=== PATIENT | female | born 1970 | race African-American/Black ===

== ENCOUNTER 2016-09-24 07:38 | Emergency (ER) | payer MEDICAID ==
[~2016-09-24] VITALS: Ht 160 cm; Wt 65.0 kg
[~2016-09-24 07:38] MED LIST: ALPR.25 PO; NAPR250T57 PO
[2016-09-24 07:42] VITALS: BP 146/86; PULSE 93; RESP 20; TEMP 97.5; O2SAT 98
[2016-09-24] MEDS ORDERED: PANT20 PO (07:54)
[2016-09-24] MEDS ORDERED: NAPROXEN 500 MG TAB PO ONE (08:15)
[2016-09-24] MEDS ORDERED: NAPR500 PO (08:16)
[2016-09-24] MEDS ORDERED: DEXT1TAB18 PO (08:16)
--- NOTE | 2016-09-24 08:16 | PD ---
HPI Chief Complaint: Chest Pain Time Seen by Provider: 08:07 Travel History International Travel<30 days: No Contact w/Intl Traveler<30days: No Traveled to known affect area: No History of Present Illness HPI 46-year-old woman who presents emergency department complaining that she can't stop coughing and her chest is hurting. Symptoms started yesterday. She felt cold at times but no definite fevers. Cough is occasionally productive of some green phlegm. Some shortness of breath, some vomiting last night. She also she 's been urinating more than normal. She smokes marijuana cigars daily. She denies any history of lung disease, COPD, asthma, or chronic bronchitis. No other complaints. History Past Medical History Narrative Medical Anxiety/depression GERD : 3 Para: 3 Social History Alcohol Use: No Tobacco Use: Yes (CIGARS X 3/DAY) Allergies-Medications (Allergen,Severity, Reaction): Coded Allergies: Dilaudid (Verified Allergy, Mild, Nausea/Vomiting, 09/24/16) Percocet (Verified Allergy, Mild, SYNCOPE, 09/24/16) Darvocet-N 100 (Verified Allergy, Unknown, 09/24/16) Reported Meds & Prescriptions Reported Meds & Active Scripts Active Reported Protonix (Pantoprazole Sodium) 20 Mg Tab 20 Mg PO DAILY Review of Systems Except as stated in HPI: all other systems reviewed are Neg Physical Exam Narrative GENERAL: Well-appearing 46-year-old woman, no acute distress. SKIN: Warm and dry. HEAD: Atraumatic. Normocephalic. NECK: Trachea midline. No JVD. CARDIOVASCULAR: Regular rate and rhythm. No murmur appreciated. RESPIRATORY: No accessory muscle use. Clear to auscultation. Breath sounds equal bilaterally. GASTROINTESTINAL: Abdomen soft, non-tender, nondistended. Hepatic and splenic margins not palpable. MUSCULOSKELETAL: No obvious deformities. No edema. PSYCHIATRIC: Appropriate mood and affect; insight and judgment normal. Data Data Last Documented VS Vital Signs Date Time Temp Pulse Resp B/P Pulse Ox O2 Delivery O2 Flow Rate FiO2 09/24/16 07:50 86 16 99 Room Air 09/24/16 07:42 97.5 146/86 Orders Electrocardiogram (09/24/16 ) MDM Medical Decision Making Medical Screen Exam Complete: Yes Emergency Medical Condition: Yes Differential Diagnosis Bronchitis, URI, pneumonia, pneumothorax, other Narrative Course Medical decision making 46-year-old with bronchitis symptoms. She looks well. Normal pulmonary exam. No evidence of pneumonia or pneumothorax. Recommend supportive treatment. Diagnosis Primary Impression: Acute bronchitis Qualified Code: J20.9 - Acute bronchitis, unspecified organism Patient Instructions: General Instructions Additional Instructions: Take Robitussin-DM as prescribed. Take naproxen as needed for chest pain and body aches. Follow-up with her primary doctor in the next 2-4 days. Return emergent department for any worsening trouble breathing, or any other new or worsening symptoms. Med/Other Pt SpecificInfo: Prescription(s) given Scripts Naproxen (Naprosyn)500 Mg [id number] Mg PO BID PRN (PAIN SCALE 1 TO 10) #20 TAB Prov:Prashant Ocasio MD 09/24/16 Dextromethorphan-Guaifenesin ER 12 HR (Mucinex DM Maximum Strength)60-1,200 Mg Tab1 Tab PO BID PRN (CHEST CONGESTION AND/OR COUGH) #14 TAB Prov:Prashant Ocasio MD 09/24/16 Disposition: 01 DISCHARGE HOME Condition: Stable Prashant Ocasio MD Sep 24, 2016 08:16
--- NOTE | 2016-09-24 18:16 | EKG ---
Date Performed: 09/24/2016 Time Performed: 07:52:51 PTAGE: 46 years EKG: Sinus rhythm Since previous tracing, no significant change noted NORMAL ECG PREVIOUS TRACING : 06/20/2015 09.02 DOCTOR: Elva Ricci Interpretating Date/Time 09/24/2016 18:15:32
== END 2016-09-24 08:50 | disposition home or self-care (01) ==
LOC: NEPE 07:38
DX: J20.9 Acute bronchitis, unspecified (principal); R09.3 Abnormal sputum; R06.02 Shortness of breath; R11.10 Vomiting, unspecified; K21.9 Gastro-esophageal reflux disease without esophagitis; Z72.0 Tobacco use; Z86.59 Personal history of other mental and behavioral disorders
CPT/HCPCS: 93005

== ENCOUNTER 2018-03-09 17:20 | Emergency (ER) | payer MEDICAID ==
[~2018-03-09] VITALS: Ht 160 cm; Wt 68.0 kg
[~2018-03-09 17:20] MED LIST changes: -ALPR.25 PO; +DEXT1TAB18 PO; -NAPR250T57 PO; +NAPR500 PO; +PANT20 PO
[2018-03-09 17:24] VITALS: BP 140/91; PULSE 133; RESP 22; TEMP 102.5; O2SAT 98
[2018-03-09] MEDS ORDERED: SODIUM CHLOR 0.9% 1000 ML INJ 1,000 ML IV ONE (17:43)
[2018-03-09 17:45] VITALS: RESP 17; O2SAT 100
[2018-03-09] MEDS ORDERED: IBUPROFEN 600 MG TAB PO ONE (17:45)
[2018-03-09] MEDS ORDERED: METOCLOPRAMIDE HCL 10 MG/2 ML VIAL IV PUSH ONE (17:45)
[2018-03-09] MEDS ORDERED: GABA300C5 PO (17:48)
--- NOTE | 2018-03-09 17:50 | PD ---
HPI Chief Complaint: Fever Time Seen by Provider: 17:43 Travel History International Travel<30 days: No Contact w/Intl Traveler<30days: No Traveled to known affect area: No History of Present Illness HPI 47-year-old female patient with history of smoking, chronic bronchitis, presents to the ER today because she is had several days history of fevers, coughing, body aches, nausea, headaches, and frequent urination. She states she does not feel well, does not know of any sick contacts. She denies other issues. Modifying Factors: None Associated Signs & Symptoms: Fevers, coughing, body aches, nausea, headaches, frequent urination Risk Factors: None PFSH Past Medical History Arthritis: No Blood Disorders: No Anxiety: Yes Depression: Yes Cancer: No Cardiovascular Problems: No Diminished Hearing: No Endocrine: No Gastrointestinal Disorders: Yes (GERD) Genitourinary: No Immune Disorder: No Musculoskeletal: No Neurologic: No Psychiatric: No Reproductive: No Respiratory: Yes (CHRONIC BRONCHITIS) Immunizations Current: Yes : 3 Para: 3 Tubal Ligation: Yes (1991) Past Surgical History Abdominal Surgery: Yes Appendectomy: Yes Ear Surgery: No Endocrine Surgery: No Eye Surgery: No Gynecologic Surgery: Yes Hysterectomy: Yes (2002) Oral Surgery: No Pacemaker: No Other Surgery: Yes (APPE,GYNE,ABD) Social History Alcohol Use: No Tobacco Use: Yes (CIGARS X 3/DAY) Substance Use: Yes (marijuana) Allergies-Medications (Allergen,Severity, Reaction): Coded Allergies: oxycodone (Verified Allergy, Severe, SYNCOPE, 03/09/18) acetaminophen (Verified Allergy, Mild, nausea, 03/09/18) propoxyphene (Verified Allergy, Unknown, rash, 03/09/18) hydromorphone (Verified Adverse Reaction, Mild, Nausea/Vomiting, 03/09/18) Reported Meds & Prescriptions Reported Meds & Active Scripts Active Cipro (Ciprofloxacin HCl) 500 Mg Tab 500 Mg PO BID 7 Days Reported Gabapentin 300 Mg Cap 300 Mg PO HS Review of Systems Except as stated in HPI: all other systems reviewed are Neg Physical Exam Narrative GENERAL: Well-developed middle-age -[place] female patient currently in mild distress. Awake and oriented 3. SKIN: Focused skin assessment warm/dry. HEAD: Atraumatic. Normocephalic. EYES: Pupils equal and round. No scleral icterus. No injection or drainage. ENT: No nasal bleeding or discharge. Mucous membranes pink and moist. NECK: Trachea midline. No JVD. CARDIOVASCULAR: Regular rate and rhythm. No murmur appreciated. RESPIRATORY: No accessory muscle use. Clear to auscultation. Breath sounds equal bilaterally. GASTROINTESTINAL: Abdomen soft, mild suprapubic tenderness without guarding or rebound, nondistended. Hepatic and splenic margins not palpable. MUSCULOSKELETAL: No obvious deformities. No clubbing. No cyanosis. No edema. NEUROLOGICAL: Awake and alert. No obvious cranial nerve deficits. Motor grossly within normal limits. Normal speech. PSYCHIATRIC: Appropriate mood and affect; insight and judgment normal. Data Data Last Documented VS Vital Signs Date Time Temp Pulse Resp B/P (MAP) Pulse Ox O2 Delivery O2 Flow Rate FiO2 03/09/18 19:24 99.5 109 18 121/80 (94) 100 Room Air Orders Orders Sepsis Workup Initiated (03/09/18 ) Complete Blood Count With Diff (03/09/18 17:43) Comprehensive Metabolic Panel (03/09/18 17:43) Lactic Acid Sepsis Protocol (03/09/18 17:43) Urinalysis - C+S If Indicated (03/09/18 17:43) Blood Culture (03/09/18 17:43) Chest, Single Ap (03/09/18 17:43) Blood Glucose (03/09/18 17:43) Ecg Monitoring (03/09/18 17:43) Iv Access Insert/Monitor (03/09/18 17:43) Oximetry (03/09/18 17:43) Oxygen Administration (03/09/18 17:43) Sodium Chlor 0.9% 1000 Ml Inj (Ns 1000 M (03/09/18 17:43) Ibuprofen (Motrin) (03/09/18 17:45) Metoclopramide Inj (Reglan Inj) (03/09/18 17:45) Influenzae A/B Antigen (03/09/18 18:56) Acetaminophen (Tylenol) (03/09/18 19:30) Labs Laboratory Tests Test 03/09/18 18:05 White Blood Count 16.8 TH/MM3 Red Blood Count 4.49 MIL/MM3 Hemoglobin 13.8 GM/DL Hematocrit 41.6 % Mean Corpuscular Volume 92.7 FL Mean Corpuscular Hemoglobin 30.6 PG Mean Corpuscular Hemoglobin Concent 33.1 % Red Cell Distribution Width 12.9 % Platelet Count 321 TH/MM3 Mean Platelet Volume 8.2 FL Neutrophils (%) (Auto) 85.8 % Lymphocytes (%) (Auto) 7.2 % Monocytes (%) (Auto) 6.6 % Eosinophils (%) (Auto) 0.1 % Basophils (%) (Auto) 0.3 % Neutrophils # (Auto) 14.4 TH/MM3 Lymphocytes # (Auto) 1.2 TH/MM3 Monocytes # (Auto) 1.1 TH/MM3 Eosinophils # (Auto) 0.0 TH/MM3 Basophils # (Auto) 0.0 TH/MM3 CBC Comment DIFF FINAL Differential Comment Urine Color YELLOW Urine Turbidity HAZY Urine pH 6.0 Urine Specific [place] 1.016 Urine Protein NEG mg/dL Urine Glucose (UA) NEG mg/dL Urine Ketones NEG mg/dL Urine Occult Blood SMALL Urine Nitrite NEG Urine Bilirubin NEG Urine Urobilinogen LESS THAN 2 mg/dL Urine Leukocyte Esterase NEG Urine RBC 1 /hpf Urine WBC 1 /hpf Urine Squamous Epithelial Cells 8 /hpf Urine Mucus FEW /lpf Microscopic Urinalysis Comment CATH-CULT NOT IND Blood Urea Nitrogen 6 MG/DL Creatinine 0.75 MG/DL Random Glucose 97 MG/DL Total Protein 8.3 GM/DL Albumin 4.0 GM/DL Calcium Level 9.4 MG/DL Alkaline Phosphatase 97 U/L Aspartate Amino Transf (AST/SGOT) 21 U/L Alanine Aminotransferase (ALT/SGPT) 36 U/L Total Bilirubin 0.8 MG/DL Sodium Level 136 MEQ/L Potassium Level 3.9 MEQ/L Chloride Level 100 MEQ/L Carbon Dioxide Level 26.4 MEQ/L Anion Gap 10 MEQ/L Estimat Glomerular Filtration Rate 100 ML/MIN Lactic Acid Level 1.0 mmol/L [facility] Medical Decision Making Medical Screen Exam Complete: Yes Emergency Medical Condition: Yes Medical Record Reviewed: Yes Interpretation(s) Laboratory Tests Test 03/09/18 18:05 White Blood Count 16.8 TH/MM3 (4.0-11.0) Neutrophils (%) (Auto) 85.8 % (16.0-70.0) Lymphocytes (%) (Auto) 7.2 % (9.0-44.0) Neutrophils # (Auto) 14.4 TH/MM3 (1.8-7.7) Monocytes # (Auto) 1.1 TH/MM3 (0-0.9) Urine Turbidity HAZY (CLEAR) Urine Occult Blood SMALL (NEG) Urine Mucus FEW /lpf (OCC) Blood Urea Nitrogen 6 MG/DL (7-18) Total Protein 8.3 GM/DL (6.4-8.2) Last 24 hours Impressions Chest X-Ray 03/09/18 4283 Signed Impressions: CONCLUSION: Lungs are clear. Differential Diagnosis Viral syndrome versus sepsis versus UTI versus pneumonia versus bronchitis Narrative Course Patient has no meningeal signs. UA did not show overt UTI. Abdomen is fairly benign and I am not suspecting an acute intra-abdominal process. She has no history of HIV, denies IV drug use. Lactate is completely normal. She is febrile and initially was given ibuprofen, supposedly is allergic to Tylenol but patient denies Tylenol allergies and was given Tylenol in the ER. Influenza testing was also done. She complains of ongoing problems with frequent urination, and at this point, considering her symptoms, my plan would be to empirically treat her for it. She is supposed to follow-up with primary care doctor in 2 days. I have talked to the patient regarding findings, and she is comfortable with following up with primary care doctor. Return for any worsening in symptoms. The plan has been discussed with her and she states understanding. Diagnosis Primary Impression: Fever Med/Other Pt SpecificInfo: Prescription(s) given Scripts Ciprofloxacin (Cipro) 500 Mg Tab 500 MG PO BID for Infection for 7 Days, #14 TAB 0 Refills Prov: Eamon Thomas MD 03/09/18 Disposition: 01 DISCHARGE HOME Condition: Stable Eamon Thomas MD Mar 09, 2018 17:50
--- NOTE | 2018-03-09 17:58 | RADRPT ---
EXAM DATE: 03/09/2018 5:56 PM EDT AGE/SEX: 47 years / Female INDICATIONS: Shortness of breath, headache and chest pain since . CLINICAL DATA: This is the patient's initial encounter. Patient reports that signs and symptoms have been present for 3 days and indicates a pain score of 5/10. MEDICAL/SURGICAL HISTORY: Hypertension. None. COMPARISON: [facility] [place] [place], [place]. . FINDINGS: A single AP view of the chest demonstrates the lungs to be symmetrically aerated without evidence of mass, infiltrate or effusion. The cardiomediastinal contours are unremarkable. Osseous structures a re intact. CONCLUSION: Lungs are clear. Electronically signed by: Júnior Emmanuel MD 03/09/2018 5:57 PM EDT
[2018-03-09 18:13] VITALS: BP 124/86; PULSE 118; RESP 17; TEMP 102.7; O2SAT 100
[2018-03-09 18:25] LABS: AUTOMATED NEUTROPHIL # 14.4 TH/MM3 (1.8-7.7); BASOPHIL % 0.3 % (0.0-2.0); EOSINOPHIL % 0.1 % (0.0-4.0); HEMATOCRIT 41.6 % (35.0-46.0); HEMOGLOBIN 13.8 GM/DL (11.6-15.3); LYMPH % 7.2 % (9.0-44.0); LYMPHOCYTE # 1.2 TH/MM3 (1.0-4.8); MEAN CELL VOLUME 92.7 FL (80.0-100.0); MEAN CORPUSCULAR HEMOGLOBIN 30.6 PG (27.0-34.0); MEAN CORPUSCULAR HGB CONC 33.1 % (32.0-36.0); MEAN PLATELET VOLUME 8.2 FL (7.0-11.0); MONO % 6.6 % (0.0-8.0); MONOCYTE # 1.1 TH/MM3 (0-0.9); NEUT % 85.8 % (16.0-70.0); PLATELET COUNT 321 TH/MM3 (150-450); RED BLOOD COUNT 4.49 MIL/MM3 (4.00-5.30); RED CELL DISTRIBUTION WIDTH 12.9 % (11.6-17.2); WHITE BLOOD COUNT 16.8 TH/MM3 (4.0-11.0)
[2018-03-09 18:44] LABS: BILIRUBIN, URINE NEG (NEG); BLOOD, URINE SMALL (NEG); GLUCOSE,URINE NEG (NEG); KETONE, URINE NEG (NEG); MUCUS URINE FEW /lpf (OCC); NITRITE,URINE NEG (NEG); SQUAMOUS EPITHELIAL CELL URINE 8 /hpf (0-5); URINE COLOR YELLOW (YELLW/STRAW); URINE LEUKOCYTE ESTERASE NEG (NEG)
[2018-03-09 18:58] LABS: AST (GOT) 21 U/L (15-37); BICARBONATE 26.4 MEQ/L (21.0-32.0); BLOOD UREA NITROGEN 6 MG/DL (7-18); CALCIUM 9.4 MG/DL (8.5-10.1); CHLORIDE 100 MEQ/L (98-107); CREATININE 0.75 MG/DL (0.50-1.00); GLOMERULAR FILTRATION RATE 100 ML/MIN (>89); GLUCOSE,RANDOM 97 MG/DL (74-106); SODIUM (NA) 136 MEQ/L (136-145)
[2018-03-09 19:03] LABS: ALKALINE PHOSPHATASE 97 U/L (45-117); ALT (GPT) 36 U/L (10-53); TOTAL BILIRUBIN ADULT 0.8 MG/DL (0.2-1.0); TOTAL PROTEIN 8.3 GM/DL (6.4-8.2)
[2018-03-09 19:24] VITALS: BP 121/80; PULSE 109; RESP 18; TEMP 99.5; O2SAT 100
[2018-03-09] MEDS ORDERED: CIPR-9 PO (19:26)
[2018-03-09] MEDS ORDERED: ACETAMINOPHEN 325 MG TAB PO ONE (19:30)
== END 2018-03-09 20:04 | disposition home or self-care (01) ==
LOC: NEPE 17:20
DX: R50.9 Fever, unspecified (principal); R05 Cough; R11.0 Nausea; R51 Headache; R35.0 Frequency of micturition; J42 Unspecified chronic bronchitis; F41.9 Anxiety disorder, unspecified; F32.9 Major depressive disorder, single episode, unspecified; K21.9 Gastro-esophageal reflux disease without esophagitis; F17.290 Nicotine dependence, other tobacco product, uncomplicated; F12.90 Cannabis use, unspecified, uncomplicated; Z79.899 Other long term (current) drug therapy
CPT/HCPCS: 71045; 80053; 81001; 83605; 85025; 87040; 87804; 96361; 96374; 99284; J2765; J7030